=== PATIENT | male | born 1990 | race Two or more races ===

== ENCOUNTER 2024-08-16 12:12 | Emergency (ER) | payer SELFPAY ==
[~2024-08-16] VITALS: Ht 167.6 cm; Wt 90.1 kg
--- NOTE | 2024-08-16 12:32 | ED.PDOC ---
General HPI Comments 34 y/o M, presents to the ED for CC of testicular pain. Patient states, that he has been experiencing left sided testicular pain onset [id number] with worsening symptoms now in bilateral testicles x1week. Patient relays, that he was seen at an urgent care for symptoms and was told to have a hydrocele; patient given antibiotics and endorses no relief. Patient comments, on associated symptoms of back pain that radiates from his testicle to his back when walking. Patient denies dysuria, hematuria, penile discharge, fever, or body-aches. No other symptoms or modifying factors present at this time. Chief Complaint: Testicle Pain Time Seen by MD: 12:24 Reviewed notes: Nurses Notes, Medications, Allergies Allergies: Coded Allergies: NO KNOWN ALLERGIES (Unverified , 08/16/24) Information Source: Patient Mode of Arrival: Ambulatory Severity: Moderate Inability to void: None Timing: Weeks Duration: Since onset Prehospital treatment: None Onset: Spontaneous Symptoms: None History of: None Location: None Location male: R Scrotum, L Scrotum Penile discharge: None Modifying factors: None associated signs and symptoms: Back Pain Past Medical History PAST MEDICAL HISTORY: Denies Surgical History: Denies all surgeries Family History Family History: Unknown Social History Smoker: Unknown Alcohol: Unknown Drugs: Unknown Lives In: Home Constitutional: denies: chills, diaphoresis, fatigue, fever, malaise, sweats, weakness, others EENTM: denies: blurred vision, double vision, ear bleeding, ear discharge, ear drainage, ear pain, ear ringing, eye pain, eye redness, hearing loss, mouth pain, mouth swelling, nasal discharge, nose bleeding, nose congestion, nose pain, photophobia, tearing, throat pain, throat swelling, voice changes, others Respiratory: denies: cough, hemoptysis, orthopnea, SOB at rest, shortness of breath, SOB with excertion, stridor, wheezing, others Cardiovascular: denies: chest pain, dizzy spells, diaphoresis, Dyspnea on e xertion, edema, irregular heart beat, left arm pain, lightheadedness, palpitations, PND, syncope, others Gastrointestinal: denies: abdomen distended, abdominal pain, blood streaked bowels, constipated, diarrhea, dysphagia, difficulty swallowing, hematemesis, melena, nausea, poor appetite, poor fluid intake, rectal bleeding, rectal pain, vomiting, others Genitourinary: reports: testicle pain, testicle swelling; denies: burning, dysuria, flank pain, frequency, hematuria, incontinence, penile discharge, penile sore, pain, urgency, others Neurological: denies: dizziness, fainting, headache, left sided numbness, left sided weakness, numbness, paresthesia, pre-existing deficit, right sided numbness, right sided weakness, seizure, speech problems, tingling, tremors, weakness, others Musculoskeletal: denies: back pain, gout, joint pain, joint swelling, muscle pain, muscle stiffness, neck pain, others Integumetry: denies: bruises, change in color, change in hair/nails, dryness, laceration, lesions, lumps, rash, wounds, others Allergic/Immunocompromised: denies: Difficulty Healing, Frequent Infections, Hives, Itching, others Hematologic/Lymphatic: denies: anemia, blood clots, easy bleeding, easy bruisin g, swollen glands, others Endocrine: denies: excessive hunger, excessive sweating, excessive thirst, excessive urination, flushing, intolerance to cold, intolerance to heat, unexplained weight gain, unexplained weight loss, others Psychiatric: denies: anxiety, bipolar disorder, depression, hopeless, panic disorder, schizophrenia, sleepless, suicidal, others All Other Systems: Reviewed and Negative Physical Exam General Appearance: No Apparent Distress, Normal HEENT: Normal ENT Inspection, Pharynx Normal, TMs Normal Neck: Full Range of Motion, Non-Tender, Normal, Normal Inspection Respiratory: Chest Non-Tender, Lungs Clear, No Accessory Muscle Use, No Respiratory Distress, Normal Breath Sounds Cardiovascular: No Edema, No JVD, No Murmur, No Gallop, Normal Peripheral Pulses, Regular Rate/Rhythm Breast Exam: Deferred Gastrointestinal: No Organomegaly, Non Tender, No Pulsatile Mass, Normal Bowel Sounds, Soft Genitalia: Deferred Pelvic: Deferred Rectal: Deferred Extremities: No calf tenderness, Normal capillary refill, Normal inspection, Normal range of motion, Non-tender, No pedal edema Musculoskeletal : Apperance: Normal Neurologic: Alert, health analytics consultant II-XII nml as Tested, No Motor Deficits, Normal Affect, Normal Mood, No Sensory Deficits Cerebellar Function: Normal Reflexes: Normal Skin: Dry, Normal Color, Warm Lymphatic: No Adenopathy Was a procedure done? Was a procedure done?: No Differential Diagnosis Kidney stone (Female): N/A Kidney stone (Male): N/A Penile/Scrotal: Epidiymitis, Prostatitis, STD, UTI, Hydrocele, Urolithiasis Urinary Problem (Male): Bladder Obstruction, Prostatitis, Urinary Retention, UTI, Other (hydrocele) X-Ray, Labs, Meds, VS Vital Signs Date Time Temp Pulse Resp B/P (MAP) Pulse Ox O2 Delivery O2 Flow Rate FiO2 08/16/24 13:03 84 17 94 Room Air* 0 21 08/16/24 13:03 97.8 84 16 129/56 (80) 94 97.8 08/16/24 12:25 99.7 94 16 122/82 (95) 98 99.7 Lab Test 08/16/24 12:25 Range/Units Urine Color Light-yellow Yellow Urine Clarity Clear Clear Urine pH 6.0 5.0-9.0 Urine Specific [place] 1.031 1.001-1.035 Urine Protein Negative Negative Urine Ketones Negative Negative Urine Blood Negative Negative /uL Urine Nitrite Negative Negative Urine Bilirubin Negative Negative Urine Urobilinogen Normal Negative mg/dL Urine Leukocyte Esterase Negative Negative /uL Urine RBC 1 0 - 3 /hpf Urine Microscopic WBC < 1 0-3 /HPF Urine Squamous Epithelial Cells None seen <5 /hpf Urine Bacteria None seen None Seen /hpf Urine Mucus Few None Seen Urine Glucose Normal Normal mg/dL Chlamydia trachomatis (GURMEET) Pending Neisseria gonorrhoeae (GURMEET) Pending Current Medications Medications (Trade) Dose Ordered Sig/Kath Route Start Time Stop Time Status Last Admin Acetaminophen/ Hydrocodone Bitart ([place] 5/325MG Tab) 1 tab ONCE ONCE PO 08/16/24 13:15 08/16/24 13:16 DC 08/16/24 13:[address] [address] Ph: [phone] DIAGNOSTIC IMAGING Diagnostic Imaging Report : [id number] Signed PATIENT: JACKLYN DIAZ JR ACCT: [id number] UNIT: [id number] : 1990 LOC: ER ROOM / BED: / AGE / SEX: 34 / M ADM STATUS: REG ER SERVICE 1216 ORDERING PHYSICIAN: DIPAK CYR MD PROCEDURE(s): TESUS - TESTICULAR ULTRASOUND REASON: testicular pain ORDER NUMBER(s): [id number], ACCESSION NUMBER(s): [id number] Procedure: US TESTICULAR ULTRASOUND Study Date and Requested Time: 08/16/2024 12:32 PM History: testicular pain Comparison: None Technique: Multiple high-resolution grayscale images of scrotal contents obtained. Color and spectral Doppler used for evaluation of testicular blood flow. Findings: Right testicle measures 3.7 x 2.2 x 2.3 cm with homogenous echotexture and normal contours. Right epididymal head measures 1.5 cm and is within normal limits. Left testicle measures 3.9 x 2.2 x 2.8 cm with homogenous echotexture and normal contours. Left epididymal head measures 1.4 cm and is within normal limits. Normal testicular color and spectral Doppler flow bilaterally. No evidence of testicular torsion. Trace bilateral hydroceles. Left-sided varicocele. Impression: No sonographic evidence of testicular torsion. Trace bilateral hydroceles Left-sided varicocele. ATED BY: MARNI TAYLOR DO DICTATED DATE/TIME: 08/16/24 1307 SIGNED BY: MARNI TAYLOR DO SIGNED DATE/TIME: 08/16/24 1307 CC: Time of 1ST Reevaluation: 12:54 Reevaluation 1ST: Unchanged Patient Education/Counseling: Diagnosis, Treatment Family Education/Counseling: No Family Present Departure 1 Departure Time of Disposition: 14:59 (Patient with a hydrocele and varicocele. Patient was previously prescribed doxycycline to take this might be why his urine appears sterile. Patient's symptoms are most consistent with epididymitis. We will treat patient with Levaquin and have him follow up with Urology.) Impression: Primary Impression: Hydrocele Qualified Codes: N43.3 - Hydrocele, unspecified Additional Impressions: Testicular pain Qualified Codes: N50.811 - Right testicular pain; N50.812 - Left testicular pain Left varicocele Disposition: 01 HOME / SELF CARE / HOMELESS Condition: Stable Referrals: ELY TAVERAS MD Additional Instructions: You have a left varicocele and bilateral hydroceles. You were prescribed levofloxacin. Please take as directed. You can wear scrotal support that may help with comfort. You were referred to urology. Please call for an appointment. For pain you can take the followinam: Ibuprofen 400mg with food Noon: Acetaminophen 1000mg 4pm: Ibuprofen 400mg with food 8pm: Acetaminophen 1000mg If your symptoms worsen or you have any other concerns then please return to the ER. e-Prescriptions Levofloxacin Hemihydrate (LEVAQUIN 500 MG) 500 Mg Tab 750 MG PO DAILY for 5 Days, #8 TAB Prov: DIPAK CYR MD 08/16/24 Discharged With: Self Critical Care Note Critical Care Time?: No Stability Stability form required: No Heart Score Heart Score: Heart Score Response (Comments) Value History N/A 0 EKG N/A 0 Age N/A 0 Risk Factors N/A 0 Troponin N/A 0 Total 0 I personally scribed for DIPAK CYR MD ([email or web address]) on 08/16/24 at 12:32. Electronically submitted by Hilary Healy ([email or web address]). I personally scribed for DIPAK CYR MD ([email or web address]) on 08/16/24 at 13:17. Electronically submitted by Hilary Healy ([email or web address]). DIPAK CYR MD Aug 16, 2024 12:32
[2024-08-16 12:51] LABS: Urine Bacteria None Seen /hpf (None Seen)
[2024-08-16 13:03] VITALS: BP 129/56; PULSE 84; RESP 17; TEMP 97.8; O2SAT 94
--- NOTE | 2024-08-16 13:10 | DVH ---
Procedure: US TESTICULAR ULTRASOUND Study Date and Requested Time: 08/16/2024 12:32 PM History: testicular pain Comparison: None Technique: Multiple high-resolution grayscale images of scrotal contents obtained. Color and spectral Doppler used for evaluation of testicular blood flow. Findings: Right testicle measures 3.7 x 2.2 x 2.3 cm with homogenous echotexture and normal contours. Right epi didymal head measures 1.5 cm and is within normal limits. Left testicle measures 3.9 x 2.2 x 2.8 cm with homogenous echotexture and normal contours. Left epidi dymal head measures 1.4 cm and is within normal limits. Normal testicular color and spectral Doppler flow bilaterally. No evidence of testicular torsion. Tra ce bilateral hydroceles. Left-sided varicocele. Impression: No sonographic evidence of testicular torsion. Trace bilateral hydroceles Left-sided varicocele.
[2024-08-16] MEDS: HYDROcodone-ACET 5/325MG TAB PO ONE (13:13)
[2024-08-16 13:21] LABS: Urine Blood Negative /uL (Negative); Urine Clarity Clear (Clear); Urine Color Light-Yellow (Yellow); Urine Mucus FEW (None Seen); Urine Protein, UAD Negative (Negative); Urine Specific Gravity 1.031 (1.001-1.035); Urine Squamous Epithelial Cell None Seen /hpf (<5); Urine Urobilinogen Normal (Negative); Urine WBC < 1 /HPF (0-3)
[2024-08-16] MEDS: KETOROLAC TROMETH 30 MG/ML 1ML VIAL IM ONE (13:29)
[2024-08-16] MEDS ORDERED: LEVO500T91 PO (15:02)
[2024-08-16] MEDS: levoFLOXacin 250 MG TAB PO ONE (15:06)
[2024-08-18 18:07] LABS: Chlamydia Trachomatis, NAA Negative (Negative); Neisseria gonorrhoeae, NAA Negative (Negative)
== END 2024-08-16 15:09 | disposition home or self-care (01) ==
LOC: ER 12:12
DX: N43.3 Hydrocele, unspecified (principal); N50.812 Left testicular pain
CPT/HCPCS: 76870; 81001

== ENCOUNTER 2024-08-21 07:48 | Emergency (ER) | payer MEDICAID, OTHER ==
[~2024-08-21] VITALS: Ht 167.6 cm; Wt 91.8 kg
[~2024-08-21 07:48] MED LIST: LEVO500T91 PO
[2024-08-21 08:50] LABS: Urine Bacteria None Seen /hpf (None Seen)
--- NOTE | 2024-08-21 09:12 | ED.PDOC ---
History of Present Illness HPI Comments 34M presents to the ER w/ testicular pain. Pt reports on being in the ER on 08/16/24, here is the HPI for that pt of that day "34 y/o M, presents to the ED for CC of testicular pain. Patient states, that he has been experiencing left sided testicular pain onset [id number] with worsening symptoms now in bilateral testicles x1week. Patient relays, that he was seen at an urgent care for symptoms and was told to have a hydrocele; patient given antibiotics and endorses no relief. Patient comments, on associated symptoms of back pain that radiates from his testicle to his back when walking." Pt updated us that, when he was here at [facility] he was informed by the physician that he is taking the wrong medication and was given another medication for his c/c, but states that he has not noticed a difference in pain during the 5 days of being on the new medication and assumes that it is not working. Denies chills, fever, N/V/D, SOB, CP or no other associated symptoms, modifiers, recent injuries or sick contacts at this time. Chief Complaint: Testicle Pain Time Seen by MD: 09:00 Primary Care Provider: NONE Reviewed Notes: Nurses Notes, Medications, Allergies Allergies: Coded Allergies: NO KNOWN ALLERGIES (Unverified , 08/16/24) Home Meds Active Scripts Levofloxacin Hemihydrate (LEVAQUIN 500 MG) 500 Mg Tab, 750 MG PO DAILY for 5 Days, #8 TAB Prov:DIPAK CYR MD 08/16/24 Information Source: Patient Mode of Arrival: Ambulatory Severity: Moderate Timing: Months Duration: Since onset Prehospital treatment: None Past Medical History PAST MEDICAL HISTORY: Denies Surgical History: Denies all surgeries Family History Family History: Reviewed,noncontributory to illness, Unknown Social History Smoker: Unknown Alcohol: Unknown Drugs: Unknown Lives In: Home Constitutional: denies: chills, diaphoresis, fatigue, fever, malaise, sweats, weakness, others EENTM: denies: blurred vision, double vision, ear bleeding, ear discharge, ear drainage, ear pain, ear ringing, eye pain, eye redness, hearing loss, mouth pain, mouth swelling, nasal discharge, nose bleeding, nose congestion, nose pain, photophobia, tearing, throat pain, throat swelling, voice changes, others Respiratory: denies: cough, hemoptysis, orthopnea, SOB at rest, shortness of breath, SOB with excertion, stridor, wheezing, others Cardiovascular: denies: chest pain, dizzy spells, diaphoresis, Dyspnea on exertion, edema, irregular heart beat, left arm pain, lightheadedness, palpitations, PND, syncope, others Gastrointestinal: denies: abdomen distended, abdominal pain, blood streaked bowels, constipated, diarrhea, dysphagia, difficulty swallowing, hematemesis, melena, nausea, poor appetite, poor fluid intake, rectal bleeding, rectal pain, vomiting, others Genitourinary: reports: testicle pain; denies: burning, dysuria, flank pain, frequency, hematuria, incontinence, penile discharge, penile sore, pain, testicle swelling, urgency, others Neurological: denies: dizziness, fainting, headache, left sided numbness, left sided weakness, numbness, paresthesia, pre-existing deficit, right sided numbness, right sided weakness, seizure, speech problems, tingling, tremors, weakness, others Musculoskeletal: denies: back pain, gout, joint pain, joint swelling, muscle pain, muscle stiffness, neck pain, others Integumetry: denies: bruises, change in color, change in hair/nails, dryness, laceration, lesions, lumps, rash, wounds, others Allergic/Immunocompromised: denies: Difficulty Healing, Frequent Infections, Hives, Itching, others Hematologic/Lymphatic: denies: anemia, blood clots, easy bleeding, easy bruising, swollen glands, others Endocrine: denies: excessive hunger, excessive sweating, excessive thirst, excessive urination, flushing, intolerance to cold, intolerance to heat, unexplained weight gain, unexplained weight loss, others Psychiatric: denies: anxiety, bipolar disorder, depression, hopeless, panic disorder, schizophrenia, sleepless, suicidal, others All Other Systems: Reviewed and Negative Physical Exam General Appearance: Moderate Distress, Normal HEENT: Normal ENT Inspection, Pharynx Normal, TMs Normal Neck: Full Range of Motion, Non-Tender, Normal, Normal Inspection Respiratory: Chest Non-Tender, Lungs Clear, No Accessory Muscle Use, No Respiratory Distress, Normal Breath Sounds Cardiovascular: No Edema, No JVD, No Murmur, No Gallop, Normal Peripheral Pulses, Regular Rate/Rhythm Breast Exam: Deferred Gastrointestinal: No Organomegaly, Non Tender, No Pulsatile Mass, Normal Bowel Sounds, Soft Genitalia: Deferred Pelvic: Deferred Rectal: Deferred Extremities: No calf tenderness, Normal capillary refill, Normal inspection, Normal range of motion, Non-tender, No pedal edema Musculoskeletal : Apperance: Normal Neurologic: Alert, project manager finance II-XII nml as Tested, No Motor Deficits, Normal Affect, Normal Mood, No Sensory Deficits Cerebellar Function: Normal Reflexes: Normal Skin: Dry, Normal Color, Warm Peripheral Pulses: 3+ Radial (R), 3+ Radial (L) Lymphatic: No Adenopathy Was a procedure done? Was a procedure done?: No Differential Dx Considerations may include: Inguinal strain Hydrocele X-Ray, Labs, Meds, VS Vital Signs Date Time Temp Pulse Resp B/P (MAP) Pulse Ox O2 Delivery O2 Flow Rate FiO2 08/21/24 09:28 82 16 97 Room Air 08/21/24 09:24 82 16 124/79 (94) 97 08/21/24 08:27 98.5 89 16 123/83 (96) 96 98.5 Lab Test 08/21/24 08:50 Range/Units Urine Color Light-yellow Yellow Urine Clarity Clear Clear Urine pH 7.5 5.0-9.0 Urine Specific [place] 1.023 1.001-1.035 Urine Protein Negative Negative Urine Ketones Negative Negative Urine Blood Negative Negative /uL Urine Nitrite Negative Negative Urine Bilirubin Negative Negative Urine Urobilinogen Normal Negative mg/dL Urine Leukocyte Esterase Negative Negative /uL Urine RBC 2 0 - 3 /hpf Urine Microscopic WBC 1 0-3 /HPF Urine Squamous Epithelial Cells Few <5 /hpf Urine Amorphous Crystals Few None Seen /hpf Urine Bacteria None seen None Seen /hpf Urine Mucus Few None Seen Urine Glucose Normal Normal mg/dL Patient alert. Complaining of testicular discomfort. Vitals stable. Ambulating. Was seen here for serum symptom few days ago. Ultrasound done at that time did not show any acute process. Ultrasound done today does not show any acute process. Explained to the patient. Was told to follow up with his primary care physician. Was told to come back if there is any problem. Time of 1ST Reevaluation: 09:30 Reevaluation 1ST: Improved Patient Education/Counseling: Diagnosis, Treatment, Prognosis Family Education/Counseling: No Family Present Departure 1 Departure Time of Disposition: 09:26 Impression: Primary Impression: Left varicocele Disposition: 01 HOME / SELF CARE / HOMELESS Condition: Good Discharged With: Self Critical Care Note Critical Care Time?: No Stability Stability form required: No Heart Score Heart Score: Heart Score Response (Comments) Value History N/A 0 EKG N/A 0 Age N/A 0 Risk Factors N/A 0 Troponin N/A 0 Total 0 I personally scribed for RAQUEL BALDERRAMA MD ([email or web address]) on 08/21/24 at 09:12. Electronically submitted by Antelmo Gonzales ([email or web address]). RAQUEL BALDERRAMA MD Aug 21, 2024 09:12
[2024-08-21 09:19] LABS: Urine Amorphous Crystal FEW /hpf (None Seen); Urine Blood Negative /uL (Negative); Urine Clarity Clear (Clear); Urine Color Light-Yellow (Yellow); Urine Mucus FEW (None Seen); Urine Protein, UAD Negative (Negative); Urine Specific Gravity 1.023 (1.001-1.035); Urine Squamous Epithelial Cell FEW /hpf (<5); Urine Urobilinogen Normal (Negative); Urine WBC 1 /HPF (0-3); Urine pH 7.5 (5.0-9.0)
--- NOTE | 2024-08-21 09:53 | DVH ---
ULTRASOUND OF SCROTUM AND CONTENTS. INDICATION: torsion COMPARISON: US TESTICULAR ULTRASOUND on DOS: 08/16/24 TECHNIQUE: Multiple real-time grayscale sonographic and color and duplex Doppler images of the scrotu m and its contents were obtained. FINDINGS: The right testicle measures 3.3 x 2.9 x 2.3 cm. The left testicle measures 3.9 x 2.5 x 2.9 cm. Both testicles demonstrate homogeneous echotexture without evidence of focal lesions. The right epididymal head measures 1.2 cm. The left epididymal head measures 1.1 cm. Subsequent color and duplex Doppler interrogation of the testes demonstrated symmetric normal vascula r flow to both testicles. No focal areas of hyperemia were seen. Trace bilateral hydroceles. Left varicoceles. IMPRESSION: 1. No evidence of torsion, epididymitis, and/or orchitis.
[2024-08-21 10:40] VITALS: BP 126/81; PULSE 79; RESP 16; TEMP 98.4; O2SAT 97
== END 2024-08-21 10:44 | disposition home or self-care (01) ==
LOC: ER 07:48
DX: I86.1 Scrotal varices (principal)
CPT/HCPCS: 76870; 81001